=== PATIENT | male | born 1945 | race Caucasian/White ===

== ENCOUNTER 2022-05-03 20:13 | Inpatient (IN) | payer MEDICARE ==
[2022-05-03] VITALS (29 sets, daily range): BP systolic 96–139; BP diastolic 61–103
[~2022-05-03] VITALS: Ht 188 cm; Wt 80.7 kg
[2022-05-03 20:54] LABS: BASO% 0.6 % (0-3); EOS% 1.4 % (0-8); HEMATOCRIT 44.6 % (39.0-50.0); HEMOGLOBIN 14.7 g/dl (14.0-18.0); IMMATURE GRANULOCYTES 0.2 % (0.0-5.0); LYMPH% 10.5 % (15-41); MEAN CELL VOLUME 95.9 fL CALC (80.0-100.0); MEAN CORPUSCULAR HGB 31.6 pG CALC (26.0-32.0); MONO% 5.2 % (2-13); NEUT# 5.23 thou/uL (1.82-7.42); NEUT% 82.1 % (42-76); RED BLOOD COUNT 4.65 mill/uL (4.70-6.10); RED CELL DISTRI WIDTH 13.6 % (11.5-15.5)
[2022-05-03] MEDS ORDERED: NITROGLYCERIN0.4 MG SL (21:03)
[2022-05-03] MEDS ORDERED: ALPRAZOLAM0.25 MG PO (21:04)
[2022-05-03 21:07] LABS: ALBUMIN 4.1 g/dL (3.2-5.0); ALKALINE PHOSPHATASE 77 u/l (38-126); ANION GAP 11 (6-22 (CALC)); BILIRUBIN, TOTAL 0.7 mg/dL (0.2-1.3); BUN 28 mg/dL (8-23); BUN/CREATININE RATIO 21 (12-20 (CALC)); CARBON DIOXIDE 26 mmol/l (22-30); CHLORIDE 104 mmol/l (95-108); CREATININE 1.3 mg/dL (0.7-1.3); GFR FOR AFR.AMER. > 60 ML/MIN (>=60 (CALC)); GFR OTHER RACES 53 ML/MIN (>=60 (CALC)); POTASSIUM 4.6 mmol/l (3.5-5.1); SGOT/AST 21 u/l (19-48); SODIUM 136 mmol/l (137-146); TOTAL PROTEIN 6.7 g/dL (6.3-8.2)
[2022-05-03] MEDS ORDERED: TIZANIDINE HCL2 MG PO (21:07)
[2022-05-03] MEDS ORDERED: ALBUTEROL SUL0.083 % IN (21:08)
[2022-05-03 21:09] LABS: D-DIMER 2.44 mg/L (0.19-0.60)
[2022-05-03] MEDS ORDERED: TRAMADOL HCL50 MG PO (21:10)
[2022-05-03 21:15] LABS: ACT PARTIAL THROMBO TIME 26.1 SECONDS (20.0-32.5); INTERNATIONAL NORMALIZED RATIO 1.2 RATIO (0.7-1.3)
[2022-05-03 21:37] LABS: TSH, 3RD GENERATION 2.18 uIU/mL (0.47 - 4.68)
[2022-05-04] VITALS (21 sets, daily range): BP systolic 91–150; BP diastolic 62–134
[2022-05-05] VITALS (32 sets, daily range): BP systolic 97–164; BP diastolic 64–114
[2022-05-05 05:48] LABS: HEMATOCRIT 44.5 % (39.0-50.0); HEMOGLOBIN 14.7 g/dl (14.0-18.0); MEAN CELL VOLUME 96.9 fL CALC (80.0-100.0); RED BLOOD COUNT 4.59 mill/uL (4.70-6.10); RED CELL DISTRI WIDTH 13.8 % (11.5-15.5)
[2022-05-05 06:39] LABS: ALBUMIN 4.1 g/dL (3.2-5.0); ALKALINE PHOSPHATASE 74 u/l (38-126); ANION GAP 10 (6-22 (CALC)); BILIRUBIN, TOTAL 0.8 mg/dL (0.2-1.3); BUN 23 mg/dL (8-23); BUN/CREATININE RATIO 19 (12-20 (CALC)); CARBON DIOXIDE 24 mmol/l (22-30); CHLORIDE 106 mmol/l (95-108); CREATININE 1.2 mg/dL (0.7-1.3); GFR FOR AFR.AMER. > 60 ML/MIN (>=60 (CALC)); GFR OTHER RACES 59 ML/MIN (>=60 (CALC)); MAGNESIUM 2.2 mg/dL (1.6-2.3); POTASSIUM 4.7 mmol/l (3.5-5.1); SGOT/AST 32 u/l (19-48); SODIUM 136 mmol/l (137-146); TOTAL PROTEIN 6.9 g/dL (6.3-8.2)
[2022-05-06] VITALS: BP 111/69
[2022-05-06 01:00] VITALS: BP 121/96
== END 2022-05-06 01:25 | disposition short-term general hospital (02) | DRG 310 ==
LOC: ED 20:13 → ICU 23:22
PROVIDERS: Family Medicine; Internal Medicine; ADMIT Internal Medicine; ATTEND Internal Medicine
DX: I45.6 Pre-excitation syndrome (principal); I48.91 Unspecified atrial fibrillation; J44.9 Chronic obstructive pulmonary disease, unspecified; F41.9 Anxiety disorder, unspecified; F17.210 Nicotine dependence, cigarettes, uncomplicated; Z86.79 Personal history of other diseases of the circulatory system; Z20.822 Contact with and (suspected) exposure to COVID-19
CPT/HCPCS: J0282; J1650; J2060; Q9967

== ENCOUNTER 2022-05-30 17:41 | Inpatient (IN) | payer MEDICARE ==
[2022-05-30] VITALS (82 sets, daily range): BP systolic 64–157; BP diastolic 40–83
[~2022-05-30] VITALS: Ht 185.4 cm; Wt 76.0 kg
[~2022-05-30 17:41] MED LIST: ALBUTEROL SUL0.083 % IN; ALPRAZOLAM0.25 MG PO; NITROGLYCERIN0.4 MG SL; TIZANIDINE HCL2 MG PO; TRAMADOL HCL50 MG PO
--- NOTE | 2022-05-30 17:48 | NUR ---
per ems, pt was from home with shortnees of breath starting today. recent d/c from [facility] for new on set afib and chf. per ems pt was given 2 duonebs and 10mg of decadron enroute, room air sat of 79% per ems
--- NOTE | 2022-05-30 17:50 | NUR ---
respiratory at bedside, for bipap.
[2022-05-30 18:24] LABS: BASO% 0.2 % (0-3); EOS% 0.4 % (0-8); HEMATOCRIT 43.1 % (39.0-50.0); HEMOGLOBIN 14.1 g/dl (14.0-18.0); IMMATURE GRANULOCYTES 0.3 % (0.0-5.0); LYMPH% 3.7 % (15-41); MEAN CELL VOLUME 97.5 fL CALC (80.0-100.0); MEAN CORPUSCULAR HGB 31.9 pG CALC (26.0-32.0); MEAN CORPUSCULAR HGB CONC 32.7 g/dL CAL (32.0-36.0); MONO% 5.5 % (2-13); NEUT# 11.51 thou/uL (1.82-7.42); NEUT% 89.9 % (42-76); RED BLOOD COUNT 4.42 mill/uL (4.70-6.10); RED CELL DISTRI WIDTH 13.4 % (11.5-15.5)
[2022-05-30 18:34] LABS: ALBUMIN 3.7 g/dL (3.2-5.0); BILIRUBIN, TOTAL 0.6 mg/dL (0.2-1.3); POTASSIUM 4.3 mmol/l (3.5-5.1); TOTAL PROTEIN 6.3 g/dL (6.3-8.2)
[2022-05-30 18:44] LABS: CREATININE 2.2 mg/dL (0.7-1.3)
--- NOTE | 2022-05-30 19:15 | NUR ---
ASSUMED CARE OF THE PT AT THIS TIME
--- NOTE | 2022-05-30 19:27 | NUR ---
LEVO DRIP INCREASED TO 12 MCG
--- NOTE | 2022-05-30 20:10 | NUR ---
LEVO DRIP TITRATED TO 10 MCG/MIN.
--- NOTE | 2022-05-30 21:30 | NUR ---
Admission Note Report Given to: SARAY SUNG Transported by: Orianaer Transported with: Nurse Patent IV O2 @2L/MIN VIA NC Pedicurist Location: ICU ROOM 2
[2022-05-31] VITALS (80 sets, daily range): BP systolic 81–153; BP diastolic 47–83
[2022-05-31 05:29] LABS: HEMATOCRIT 39.1 % (39.0-50.0); MEAN CORPUSCULAR HGB 32.3 pG CALC (26.0-32.0); MEAN CORPUSCULAR HGB CONC 33.2 g/dL CAL (32.0-36.0); RED BLOOD COUNT 4.03 mill/uL (4.70-6.10); RED CELL DISTRI WIDTH 13.3 % (11.5-15.5)
[2022-05-31 06:03] LABS: ALBUMIN 3.4 g/dL (3.2-5.0); CREATININE 1.8 mg/dL (0.7-1.3); MAGNESIUM 2.6 mg/dL (1.6-2.3); POTASSIUM 4.9 mmol/l (3.5-5.1); TOTAL PROTEIN 5.6 g/dL (6.3-8.2)
[2022-05-31 06:19] LABS: BILIRUBIN, TOTAL 0.3 mg/dL (0.2-1.3)
[2022-05-31 06:52] LABS: URINE BILIRUBIN - DIPSTICK NEGATIVE (NEGATIVE); URINE BLOOD DIPSTICK TRACE-INTACT (NEGATIVE); URINE COLOR YELLOW; URINE GLUCOSE - DIPSTICK >=1000 mg/dL (NEGATIVE); URINE KETONE NEGATIVE (NEGATIVE); URINE LEUK ESTERASE NEGATIVE (NEGATIVE); URINE PH 5.5 (4.5-8.0); URINE PROTEIN - DIPSTICK TRACE mg/dL (NEG-TRACE); URINE UROBILINOGEN - DIPSTICK 0.2 E.U./dL (0.2)
[2022-05-31 06:59] LABS: URINE NITRITE - DIPSTICK NEGATIVE (Negative)
--- NOTE | 2022-05-31 07:34 | NUR ---
REPORT RECEIVED FROM WHEEL PRESSER - PT OBSERVED IN BED WITH EYES CLOSED - STABLE ON MONITOR- NO S/S DISTRESS - CALL LIGHT IN REACH
--- NOTE | 2022-05-31 09:15 | NUR ---
PT IN BED - DENIES ANY PAIN AT THIS TIME (HAD TAKEN TRAMADOL EARLIER) - NO S/S DISTRESS ON ROOM AIR - BP STABLE OFF LEVO - BED IN LOWEST LOCKED POSITION - CALL LIGHT IN REACH
--- NOTE | 2022-05-31 11:00 | NUR ---
FAXED REQUEST TO [facility] FOR [facility]APER[facility] FOR ACTUAL MED REC
--- NOTE | 2022-05-31 13:00 | NUR ---
PT RESTING IN BED WITH BEDSIDE - DENIES ANY NEEDS - NO CONCERNS FOR SAFETY - NO S/S DISTRESS - CALL LIGHT IN REACH
[2022-05-31] MEDS ORDERED: ATORVASTATIN CA40 MG PO (15:04)
[2022-05-31] MEDS ORDERED: LOSARTAN POTASS25 MG PO (15:05)
[2022-05-31] MEDS ORDERED: FUROSEMIDE20 MG PO (15:05)
[2022-05-31] MEDS ORDERED: TOPROL XL25 M1 PO (15:08)
[2022-05-31] MEDS ORDERED: PROTONIX40 M2 PO (15:08)
[2022-05-31] MEDS ORDERED: SPIRONOLACTONE25 MG PO (15:10)
[2022-05-31] MEDS ORDERED: CORDARONE/200 MG/TAB PO (15:11)
--- NOTE | 2022-05-31 15:46 | NUR ---
BROUGHT MED REC FROM [facility] - MED RECONCILIATION COMPLETED PER MD REQUEST - NO NEEDS AT THIS TIME - CALL LIGHT IN REACH
--- NOTE | 2022-05-31 17:41 | NUR ---
PT EATING DINNER WITH BEDSIDE - DENIES ANY PAIN OR NEEDS - PT STABLE ON MONITOR - CALL LIGHT IN REACH
[2022-06-01 00:01] VITALS: BP 132/63
[2022-06-01 04:01] VITALS: BP 144/66
[2022-06-01 06:01] LABS: HEMATOCRIT 38.2 % (39.0-50.0); HEMOGLOBIN 12.8 g/dl (14.0-18.0); MEAN CELL VOLUME 97.2 fL CALC (80.0-100.0); MEAN CORPUSCULAR HGB 32.6 pG CALC (26.0-32.0); MEAN CORPUSCULAR HGB CONC 33.5 g/dL CAL (32.0-36.0); RED BLOOD COUNT 3.93 mill/uL (4.70-6.10); RED CELL DISTRI WIDTH 13.4 % (11.5-15.5)
[2022-06-01 06:17] LABS: ALBUMIN 3.2 g/dL (3.2-5.0); BILIRUBIN, TOTAL 0.2 mg/dL (0.2-1.3); CREATININE 1.4 mg/dL (0.7-1.3); MAGNESIUM 2.5 mg/dL (1.6-2.3); POTASSIUM 4.9 mmol/l (3.5-5.1); TOTAL PROTEIN 5.5 g/dL (6.3-8.2)
--- NOTE | 2022-06-01 07:00 | NUR ---
REPORT RECEIVED FROM JACOBO SUNGGRAPE PICKERROBOTIC WELD TECHNICIAN. PATIENT OBSERVED RESTING IN BED WATCHING MOVIES ON HIS CELL PHONE. STABLE ON MONITOR. NO S-S DISTRES. SAFETY AND FALL PRECAUTIONS IN PLACE. CALL LIGHT WITHIN IN REACH.
[2022-06-01 08:00] VITALS: BP 124/80
[2022-06-01 08:02] VITALS: BP 124/80
[2022-06-01 08:32] VITALS: BP 124/80
--- NOTE | 2022-06-01 08:47 | NUR ---
Patient alert and oriented x3. Assessment head-to toe complete. Distress or pain is not observed at the time of this note. Patient accompanied by relative. Patient is educated aboud medications, nursing plan for today. Dr. Anderson Goes round educates patient about medications at home, Dx. plan and possible DC for today. Patient refer understand. Safety and fall precautions in place. Call light within in reach.
[2022-06-01] MEDS ORDERED: PREDNISONE10 MG PO (09:03)
[2022-06-01] MEDS ORDERED: ELIQUIS5 MG PO (09:04)
[2022-06-01] MEDS ORDERED: VIBRAMYCIN100 M2 PO (09:04)
--- NOTE | 2022-06-01 10:45 | NUR ---
Discharge instructions given. Patient verbalizes understanding of same. Discharged in stable condition via Wheelchair to Home with staff. All belongings sent with pt.
== END 2022-06-01 10:40 | disposition home or self-care (01) | DRG 871 ==
LOC: ED 17:41 → ED-I 19:50 → ED 20:01 → ICU 20:02
PROVIDERS: Family Medicine; ADMIT Internal Medicine; ATTEND Internal Medicine
PROC: 06HY33Z Insertion of Infusion Device into Lower Vein, Percutaneous Approach (ICD-10-PCS; principal; 2022-05-30)
PROC: 5A09357 Assistance with Respiratory Ventilation, Less than 24 Consecutive Hours, Continuous Positive Airway Pressure (ICD-10-PCS; 2022-05-30)
PROC: 3E043XZ Introduction of Vasopressor into Central Vein, Percutaneous Approach (ICD-10-PCS; 2022-05-30)
DX: A41.9 Sepsis, unspecified organism (principal); J96.20 Acute and chronic respiratory failure, unspecified whether with hypoxia or hypercapnia; J44.1 Chronic obstructive pulmonary disease with (acute) exacerbation; N17.9 Acute kidney failure, unspecified; R65.20 Severe sepsis without septic shock; I95.9 Hypotension, unspecified; I48.91 Unspecified atrial fibrillation; I45.6 Pre-excitation syndrome; I50.9 Heart failure, unspecified; Z20.822 Contact with and (suspected) exposure to COVID-19